=== PATIENT | male | born 1965 | race Caucasian/White ===

== ENCOUNTER 2018-05-27 08:55 | Day surgery (SDC) | payer BC ==
[~2018-05-27 08:55] MED LIST: EPINEPHrine 1 MG/ML SDV ONE; Lactated Ringers 1,000 ML IV SCH; Lidocaine 1% 4 ML ONE; Lidocaine 1%/Sod Bicarbonate in NS 8.4% 1 ML Syringe IDERM PRN; Midazolam 1 MG/ML 2 ML SDV ONE; Ondansetron 4 MG/2 ML SDV ONE; Propofol 200 MG/20 ML SDV ONE; Rocuronium 50 MG/5 ML Vial ONE; Ropivacaine 0.5% 5 MG/ML 30 ML SDV ONE; Sodium Chloride 0.9% 10 ML Syringe FLUSH PRN; fentaNYL 250 MCG/5 ML SDV ONE
--- NOTE | 2018-05-27 09:54 | PCM.PREANE ---
Preanesthetic Assessment - Procedure Proposed Procedure: right distal beiceps tendon repair - Anesthesia/Transfusion/Family Hx Anesthesia History: No Prior Anesthesia Family History of Anesthesia Reaction: No Transfusion History: No Prior Transfusion(s) - Review of Systems General: No Symptoms Pulmonary: No Symptoms Cardiovascular: No Symptoms Gastrointestinal: No Symptoms Neurological: No Symptoms - Physical Assessment NPO Status Date: 05/26/18 NPO Status Time: 23:55 O2 Sat by Pulse Oximetry: 94 Respiratory Rate: 16 Vital Signs: Last Vital Signs Temp 97.9 F 05/27/18 09:25 Pulse 79 05/27/18 09:25 Resp 16 05/27/18 09:25 BP 124/80 05/27/18 09:25 Pulse Ox 94 L 05/27/18 09:25 Height: 5 ft 10 in Weight: 81.012 kg ASA Class: 2 Mental Status: Alert & Oriented x3 Airway Class: Mallampati = 1 Dentition: Reports: Normal Dentition Thyro-Mental Finger Breadths: 3 Mouth Opening Finger Breadths: 3 ROM/Head Extension: Full Lungs: Clear to Auscultation, Normal Respiratory Effort Cardiovascular: Regular Rate, Regular Rhythm - Lab Values: Laboratory Last Values WBC 5.24 K/mm3 (4.23-9.07) 05/27/18 09:40 RBC 5.97 M/mm3 (4.63-6.08) 05/27/18 09:40 Hgb 16.8 gm/L (13.7-17.5) 05/27/18 09:40 Hct 51.8 % (40.1-51.0) H 05/27/18 09:40 MCV 86.8 fl (79.0-92.2) 05/27/18 09:40 MCH 28.1 pg (25.7-32.2) 05/27/18 09:40 MCHC 32.4 g/dl (32.2-35.5) 05/27/18 09:40 RDW Std Deviation 45.0 fL (35.1-43.9) H 05/27/18 09:40 Plt Count 302 K/mm3 (163-337) 05/27/18 09:40 MPV 8.8 fl (9.4-12.3) L 05/27/18 09:40 Neut % (Auto) 65.9 % (34.0-67.9) 05/27/18 09:40 Lymph % (Auto) 25.0 % (21.8-53.1) 05/27/18 09:40 [place] % (Auto) 7.4 % (5.3-12.2) 05/27/18 09:40 Eos % (Auto) 1.1 (0.8-7.0) 05/27/18 09:40 Baso % (Auto) 0.4 % (0.1-1.2) 05/27/18 09:40 Neut # (Auto) 3.45 K/mm3 (1.78-5.38) 05/27/18 09:40 Lymph # (Auto) 1.31 K/mm3 (1.32-3.57) L 05/27/18 09:40 [place] # (Auto) 0.39 K/mm3 (0.30-0.82) 05/27/18 09:40 Eos # (Auto) 0.06 K/mm3 (0.04-0.54) 05/27/18 09:40 Baso # (Auto) 0.02 K/mm3 (0.01-0.08) 05/27/18 09:40 - Allergies Allergies/Adverse Reactions: Allergies Allergy/AdvReac Type Severity Reaction Status Date / Time No Known Allergies Allergy Verified 05/26/18 13:02 - Blood Blood Available: No - Acknowledgements Anesthesia Type Planned: General Anesthesia Pt an Appropriate Candidate for the Planned Anesthesia: Yes Alternatives and Risks of Anesthesia Discussed w Pt/Guardian: Yes Pt/Guardian Understands and Agrees with Anesthesia Plan: Yes PreAnesthesia Questionnaire - Past Health History Medical/Surgical History: Denies Medical/Surgical History Cardiovascular History: Reports: None Respiratory History: Reports: None Gastrointestinal History: Reports: None - History Comment History Comment: advil prn for headache. centrum - SUBSTANCE USE Smoking Status *Q: Never Smoker Tobacco Use Within Last Twelve Months: No Second Hand Smoke Exposure: No Days Per Week of Alcohol Use: 0 Recreational Drug Use History: No - HOME MEDS Home Medications: Home Meds Acetaminophen/HYDROcodone [[place] 325-5 MG] 1 - 2 tab PO Q6H PRN #30 tablet 05/27 [Rx] Cyclobenzaprine [Flexeril] 10 mg PO Q8H PRN #30 tab 05/27/18 [Rx] - CURRENT (IN HOUSE) MEDS Current Meds: Current Medications Lactated Ringer's (Ringers, Lactated) 1,000 mls @ 125 mls/hr IV ASDIRECTED [place] Stop: 05/27/18 23:00 Lidocaine/Sodium Bicarbonate (Buffered Lidocaine 1% In Ns 8.4%) 0.25 ml IDERM ONETIME PRN PRN Reason: Prior to IV Start Stop: 05/27/18 18:00 Sodium Chloride (Saline Flush) 10 ml FLUSH ASDIRECTED PRN PRN Reason: Keep Vein Open Stop: 05/27/18 18:00 Discontinued Medications Epinephrine HCl (Adrenalin) Confirm Administered Dose 1 mg .ROUTE .STK-MED ONE Stop: 05/27/18 08:56 Fentanyl (Sublimaze) Confirm Administered Dose 250 mcg .ROUTE .STK-MED ONE Stop: 05/27/18 08:26 Lidocaine HCl (Xylocaine-Mpf 1%) Confirm Administered Dose 4 mls @ as directed .ROUTE .STK-MED ONE Stop: 05/27/18 08:26 Lidocaine HCl (Xylocaine-Mpf 1%) Confirm Administered Dose 4 mls @ as directed .ROUTE .STK-MED ONE Stop: 05/27/18 08:26 Midazolam HCl (Versed 1 Mg/Ml) Confirm Administered Dose 2 mg .ROUTE .STK-MED ONE Stop: 05/27/18 08:26 Ondansetron HCl (Zofran) Confirm Administered Dose 4 mg .ROUTE .STK-MED ONE Stop: 05/27/18 08:26 Propofol (Diprivan 20 Ml) Confirm Administered Dose 200 mg .ROUTE .STK-MED ONE Stop: 05/27/18 08:26 Rocuronium [place] (Zemuron) Confirm Administered Dose 50 mg .ROUTE .STK-MED ONE Stop: 05/27/18 08:26 Ropivacaine (Naropin 0.5%) Confirm Administered Dose 30 ml .ROUTE .STK-MED ONE Stop: 05/27/18 08:56
[2018-05-27] MEDS ORDERED: Bupivacaine 0.25% 30 ML SDV ONE (10:13)
--- NOTE | 2018-05-27 10:49 | PCM.SN ---
- Free Text/Narrative Note: 05/27/2018 1021 Time out performed. Requested to place right interscale block with ultrasound guidance and nerve stimulator for post op pain control per Dr. Webb and patient. Start procedure: 1031 End procedure 1034 Preop diagnosis left biceps distal tendon rupture Procedure is right biceps distal tendon repair Informed consent obtained. Monitors and O2 placed at 2 l per n/c. Versed 2 mg and Fentanyl 100 mcg given IV total. Patient nervous preprocedure. Patient awake and talking during procedure. Right neck and clavicle area prepped with chlorprep. Sterile gloves, hat and mask worn. US probe with sterile sleeve placed midclavicular with ID of brachial plexus and subclavian artery. Lidocaine 1% local anesthetic injected prior to block placement. 22 g 2 inch stimplex needle advanced with US guidance to brachial plexus. Positive forearm response at ..4mA with nerve stimulator. Ceased with saline injection.Ropivacaine 0.5% with epi 1:200,000 injected in increments of 5 ml with negative aspiration before each injection to a total of 30 ml. Good spread of local anesthetic seen on US. Patient tolerated procedure well. Vitals stable with no complaints. Javon GAYTAN
[2018-05-27] MEDS ORDERED: fentaNYL 100 MCG/2 ML SDV IVPUSH PRN (11:18)
[2018-05-27] MEDS ORDERED: HYDROmorphone 0.5 MG/0.5 ML Syringe IVPUSH PRN (11:18)
[2018-05-27] MEDS ORDERED: Ondansetron 4 MG/2 ML SDV IVPUSH PRN (11:18)
[2018-05-27] MEDS ORDERED: ceFAZolin 1 GM Vial ONE (11:20)
[2018-05-27] MEDS ORDERED: Neostigmine Methylsulfate 1 MG/ML 5 ML Syringe ONE (12:18)
[2018-05-27] MEDS ORDERED: Lactated Ringers 1,000 ML ONE (12:27)
--- NOTE | 2018-05-27 12:53 | CR ---
Right elbow: Three fluoroscopic spot views were obtained of the right elbow utilizing C-arm device. Comparison: No previous study. Study shows surgery at the radial tuberosity compatible with biceps tendon repair. Fluoroscopy time is given as 18.2 seconds. Impression: 1. Procedural study as described above. Diagnostic code #2
--- NOTE | 2018-05-27 12:56 | PCM.POSTAN ---
POST ANESTHESIA ASSESSMENT - MENTAL STATUS Mental Status: Alert, Oriented - VITAL SIGNS Pulse Rate: 62 SaO2: 96 Resp Rate: 15 Blood Pressure: 106/71 Temperature: 97.9 F - RESPIRATORY Respiratory Status: Respiratory Rate WNL, Airway Patent, O2 Saturation Stable, Supplemental Oxygen - CARDIOVASCULAR CV Status: Pulse Rate WNL, Blood Pressure Stable - GASTROINTESTINAL GI Status: No Symptoms - PAIN Pain Score: 0 - POST OP HYDRATION Hydration Status: Adequate & Stable
--- NOTE | 2018-05-28 10:00 | PCM48HPAN ---
Post Anesthesia Note - EVALUATION WITHIN 48HRS OF ANESTHETIC Vital Signs in Normal Range: Yes Patient Participated in Evaluation: No (patient discharged- visited with nurse) Respiratory Function Stable: Yes Airway Patent: Yes Cardiovascular Function Stable: Yes Hydration Status Stable: Yes Pain Control Satisfactory: Yes Nausea and Vomiting Control Satisfactory: Yes Mental Status Recovered: Yes Pulse Rate: 62 Resp Rate: 17 Temperature: 97.9 F Blood Pressure: 106/71
--- NOTE | 2018-06-01 07:21 | PCM.OPNOTE ---
- General Post-Op/Procedure Note Date of Surgery/Procedure: 05/27/18 Operative Procedure(s): right distal biceps tendon repair Pre Op Diagnosis: right distal biceps tendon rupture Post-Op Diagnosis: Same Anesthesia Technique: General LMA, Regional Block Primary Surgeon: Wilfrido Webb Anesthesia Provider: Lindsey Haney Erp Analyst: Natalya Brooke EBMana in mLs: 5 Complications: None Condition: Good
--- NOTE | 2018-06-01 11:26 | OR ---
DATE OF OPERATION: 05/27/2018 SURGEON: Wilfrido Webb MD OPERATION PERFORMED: Right distal biceps tendon repair. PREOPERATIVE DIAGNOSIS: Right distal biceps tendon rupture. POSTOPERATIVE DIAGNOSIS: Right distal biceps tendon rupture. ANESTHESIA: Technique: General LMA with local. ANESTHESIA PROVIDER: Lindsey Haney CRNA. ORDERING BOX OPERATOR: Natalya Brooke PA-C. ESTIMATED BLOOD LOSS: Less than 5 mL. COMPLICATIONS: None. CONDITION: Stable. DESCRIPTION OF PROCEDURE: The patient was identified in the preop holding area. Proper site was marked and identified by the surgeon. The patient was taken back to the operating theater, where after adequate anesthesia, the patient's right upper extremity had a nonsterile tourniquet applied and it was then sterilely prepped and draped in the usual sterile fashion. OR time-out was performed. The patient received 2 g IV Ancef. At this time, the right upper extremity was exsanguinated, tourniquet was then insufflated to 250 mmHg. A standard transverse incision was made centered over the radial tuberosity. This was taken down through the skin and subcutaneous tissue and the biceps tendon. Previous tract was identified. The biceps tendon was then identified with full proximal retraction. At this time, the end was brought down. The end was then debulked to the distal biceps tendon so that it would fit through an 8 mm styloid hole. At this time, a #2 FiberLoop suture was used to whipstitch the distal end of the portion of the distal biceps tendon. At this time, attention was turned into the radial tuberosity. At this time, guide pin was placed in a center-center position, angled 30 degrees ulnar and 30 degrees distal on the distal radial tuberosity. At this time, the 8 mm over-drill bit was then drilled and was found to have adequate bicortical drilling with the near cortex drilled 28 mm. At this time, the guide pin was then removed. The EndoButton was secured to the end of the distal biceps tendon through the FiberWire. At this time, the EndoButton was then put through the far cortex and tension was applied. The tendon was then shuttled into the previous drill hole. It was found to have good docking at this time. I did try 7 mm interference screw, but it had difficulty with opposition, and at this time, the suture did break. So at this time, we had to load another FiberLoop on the distal end of the tendon and another EndoButton had to be loaded and then was placed through the far cortex again and this the tendon was shuttled down. At this time, I used an 8 mm interference screw and found to have good fixation of the distal biceps tendon with good tension of the distal biceps tendon restored. At this time, adequate saline was irrigated through the wound. 3-0 Vicryl was used subcutaneously. Monocryl was used for the skin along with Dermabond. The patient was placed in a sterile soft dressing and a posterior slab and sent to the PACU in stable condition. RICHIE /[id number]
== END 2018-05-27 14:50 | disposition home or self-care (01) ==
LOC: JD.SDS 08:55
PROVIDERS: ATTEND Orthopaedic Surgery
DX: S46.211A Strain of muscle, fascia and tendon of other parts of biceps, right arm, initial encounter (principal); X58.XXXA Exposure to other specified factors, initial encounter
CPT/HCPCS: 24342; 36415; 64415; 76000; 80053; 85025; 93005; C1713; C1776; J0171; J0690; J2001; J2250; J2405; J2704; J2710; J2795; J3010; J3490; J7120; 01710